=== PATIENT | female | born 1975 | race Hispanic/Latino ===

== ENCOUNTER 2020-12-07 09:57 | Emergency (ER) | payer SELFPAY ==
[~2020-12-07] VITALS: Ht 152.4 cm; Wt 58.8 kg
[~2020-12-07 09:57] MED LIST: CEPHALEXIN500 MG PO; FLEXERIL PO; LORTAB 7.5 PO; MIRALAX3350 N1 OR; NAPROSYN500 MG PO; NO HOME MEDS; NO MEDS; PREVACID30 M2 OR; ULTRAM50 M1 PO; ZITHROMAX250 MG PO; ZYRTEC10 MG PO
[2020-12-07] MEDS ORDERED: VOLTAREN1%GEL TOP (11:17)
[2020-12-07 11:24] VITALS: BP 131/75
== END 2020-12-07 11:24 | disposition home or self-care (01) | DRG 556 ==
LOC: ED 09:57
DX: M79.671 Pain in right foot (principal); W01.0XXA Fall on same level from slipping, tripping and stumbling without subsequent striking against object, initial encounter; Y92.512 Supermarket, store or market as the place of occurrence of the external cause; Y99.9 Unspecified external cause status

== ENCOUNTER 2023-04-02 23:28 | Emergency (ER) | payer SELFPAY ==
[~2023-04-02] VITALS: Ht 152.4 cm; Wt 64.0 kg
[~2023-04-02 23:28] MED LIST changes: +VOLTAREN1%GEL TOP
[2023-04-02 23:40] VITALS: BP 125/73
[2023-04-03 00:20] LABS: BASO% 0.3 % (0-3); HEMATOCRIT 39.4 % (37.0-47.0); HEMOGLOBIN 12.9 g/dl (12.0-16.0); IMMATURE GRANULOCYTES 0.2 % (0.0-5.0); LYMPH% 50.1 % (15-41); MEAN CELL VOLUME 91.6 fL CALC (80.0-100.0); MEAN CORPUSCULAR HGB CONC 32.7 g/dL CAL (32.0-36.0); MONO% 5.9 % (2-13); NEUT# 2.69 thou/uL (2.00-7.15); NEUT% 41.5 % (42-76); RED BLOOD COUNT 4.3 mill/uL (4.20-5.60); RED CELL DISTRI WIDTH 12.3 % (11.5-15.5)
[2023-04-03 00:20] LABS: URINE BILIRUBIN - DIPSTICK NEGATIVE (NEGATIVE); URINE BLOOD DIPSTICK TRACE-INTACT (NEGATIVE); URINE COLOR YELLOW; URINE GLUCOSE - DIPSTICK NEGATIVE (NEGATIVE); URINE KETONE NEGATIVE (NEGATIVE); URINE LEUK ESTERASE NEGATIVE (NEGATIVE); URINE NITRITE - DIPSTICK NEGATIVE (Negative); URINE PROTEIN - DIPSTICK NEGATIVE (NEG-TRACE); URINE UROBILINOGEN - DIPSTICK 0.2 E.U./dL (0.2)
[2023-04-03 00:36] LABS: ALBUMIN 4.4 g/dL (3.2-5.0); ALKALINE PHOSPHATASE 81 u/l (38-126); ANION GAP 14 (6-22 (CALC)); BUN 17 mg/dL (7-17); BUN/CREATININE RATIO 24 (12-20 (CALC)); CARBON DIOXIDE 24 mmol/l (22-30); CHLORIDE 105 mmol/l (95-108); CREATININE 0.7 mg/dL (0.5-1.0); GFR FOR AFR.AMER. > 60 ML/MIN (>=60 (CALC)); GFR OTHER RACES > 60 ML/MIN (>=60 (CALC)); POTASSIUM 3.8 mmol/l (3.5-5.1); SGOT/AST 36 u/l (14-36); SODIUM 139 mmol/l (137-146); TOTAL PROTEIN 8.2 g/dL (6.3-8.2)
[2023-04-03 00:41] LABS: BILIRUBIN, TOTAL 0.3 mg/dL (0.02-1.3)
[2023-04-03 00:44] VITALS: BP 145/88
[2023-04-03 00:45] VITALS: BP 139/91
[2023-04-03 01:00] VITALS: BP 135/82
[2023-04-03] MEDS ORDERED: ANTIVERT25 M1 PO (01:12)
[2023-04-03 01:15] VITALS: BP 124/75
== END 2023-04-03 01:22 | disposition home or self-care (01) | DRG 149 ==
LOC: ED 23:28
PROVIDERS: Emergency Medicine
DX: H81.10 Benign paroxysmal vertigo, unspecified ear (principal)

== ENCOUNTER 2023-06-29 15:29 | Emergency (ER) | payer SELFPAY ==
[~2023-06-29] VITALS: Ht 152.4 cm; Wt 59.0 kg
[~2023-06-29 15:29] MED LIST changes: +ANTIVERT25 M1 PO
[2023-06-29 16:04] VITALS: BP 122/80
[2023-06-29 17:07] LABS: URINE BILIRUBIN - DIPSTICK NEGATIVE (NEGATIVE); URINE COLOR YELLOW; URINE GLUCOSE - DIPSTICK NEGATIVE (NEGATIVE); URINE KETONE TRACE mg/dL (NEGATIVE); URINE NITRITE - DIPSTICK NEGATIVE (Negative); URINE PROTEIN - DIPSTICK NEGATIVE (NEG-TRACE); URINE UROBILINOGEN - DIPSTICK 0.2 E.U./dL (0.2)
[2023-06-29 17:08] LABS: URINE BLOOD DIPSTICK TRACE-INTACT (NEGATIVE); URINE LEUK ESTERASE SMALL (NEGATIVE)
[2023-06-29 17:11] LABS: URINE SQUAMOUS EPITHELIAL CELL FEW EPI/hpf (0-FEW)
[2023-06-29] MEDS ORDERED: AUGMENTIN250 MG PO (17:32)
[2023-06-29 17:45] VITALS: BP 122/80
== END 2023-06-29 18:49 | disposition home or self-care (01) | DRG 153 ==
LOC: ED 15:29
PROVIDERS: Family Medicine
DX: J02.0 Streptococcal pharyngitis (principal); N39.0 Urinary tract infection, site not specified; Z20.822 Contact with and (suspected) exposure to COVID-19

== ENCOUNTER 2024-11-25 11:53 | Emergency (ER) | payer SELFPAY ==
[~2024-11-25] VITALS: Ht 160 cm; Wt 67.0 kg
[~2024-11-25 11:53] MED LIST changes: +AUGMENTIN250 MG PO; +MECLIZINE25 MG PO
[2024-11-25] MEDS ORDERED: MEDDOSEPAK PO (15:35)
[2024-11-25] MEDS ORDERED: ZPAK PO (15:35)
[2024-11-25 15:45] VITALS: BP 126/73
== END 2024-11-25 15:45 | disposition home or self-care (01) | DRG 153 ==
LOC: ED 11:53
DX: J06.9 Acute upper respiratory infection, unspecified (principal)